=== PATIENT | male | born 1955 | race Caucasian/White ===

== ENCOUNTER → 2021-05-11 13:26 | Outpatient (BNVA) | payer OTHER, SELFPAY | PROVIDERS: Referring Provider Family Medicine; Visit Provider Orthopaedic Surgery | DX: M25.562 Pain in left knee (principal); M25.561 Pain in right knee; M25.862 Other specified joint disorders, left knee; Z96.651 Presence of right artificial knee joint | CPT/HCPCS: 73560; 73565 ==

== ENCOUNTER → 2021-05-18 09:23 | Outpatient (BNVA) | payer OTHER, SELFPAY | PROVIDERS: Visit Provider Orthopaedic Surgery | DX: Z01.812 Encounter for preprocedural laboratory examination (principal); Z20.822 Contact with and (suspected) exposure to COVID-19 | CPT/HCPCS: 87635 ==

== ENCOUNTER 2021-05-24 07:51 | Inpatient (IN) | payer MEDICARE, SELFPAY ==
[2021-05-21 11:59] VITALS: BMI 39.5
--- NOTE | 2021-05-21 12:01 | ECG_ITS ---
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 Measurements Intervals [place] Rate: 59 P: 62 MS: 169 QRS: 10 QRSD: 108 T: 58 QT: 514 QTc: 510 Interpretive Statements SINUS BRADYCARDIA INCOMPLETE RIGHT BUNDLE BRANCH BLOCK [90+ ms QRS DURATION, TERMINAL R IN V1/V2, 40+ ms S IN I/aVL/V4/V5/V6] NONSPECIFIC ST & T-WAVE ABNORMALITY PROLONGED QT INTERVAL TYPE 3 BRUGADA PATTERN (NON-DIAGNOSTIC) [COVED/SADDLEBACK ST ELEVATION > 0.1mV IN 2 OF V1-3] CRITICAL TEST RESULT No previous ECG available for comparison Electronically Signed On 05-21-2021 17:57:10 STRUCTURAL STEEL WORKER APPRENTICE by Frederic Wilder M.D. [id number]
[2021-05-21 12:42] LABS: Basophils # 0.1 10^3/uL (0.0-0.1); Basophils % 0.7 %; Eosinophils # 0.1 10^3/uL (0.0-0.8); Eosinophils % 1.1 %; Hematocrit 50.8 % (42.0-52.0); Hemoglobin 16.9 g/dL (11.7-16.6); Lymphocytes # 1.9 10^3/uL (0.8-4.8); Lymphocytes % 19.2 %; Mean Corpuscular HGB Conc 33.3 g/dL (30.0-36.0); Mean Corpuscular Hemoglobin 29.9 pg (28.0-34.0); Mean Corpuscular Volume 89.8 fl (80-94); Mean Platelet Volume 11.2 fL (7.4-10.4); Monocytes # 0.7 10^3/uL (0.2-0.9); Monocytes % 6.8 %; Neutrophils # 6.94 10^3/uL (1.8-7.7); Neutrophils % 71.9 %; Nucleated Red Blood Cells % 0 %; Platelet Count 219 10^3/cmm (130-400); Red Blood Count 5.66 10^6/uL (4.1-5.3); White Blood Count 9.7 10^3/uL (4.0-10.0)
[2021-05-21 13:00] LABS: Anion Gap 18.2 (5-19); Blood Urea Nitrogen 13 mg/dL (8-23); Calcium 9.3 mg/dL (8.5-10.5); Carbon Dioxide 25 mmol/L (22-29); Chloride 103 mmol/L (98-107); Glomerular Filtration Rate 134.4 mL/min (90-130); Glucose 112 mg/dL (65-115); Osmolality Calculated 295 mOsm/kg (285-295); Potassium 4.2 mmol/L (3.5-5.1); Sodium 142 mmol/L (136-145)
--- NOTE | 2021-05-21 15:40 | ANES.PREANE2 ---
Pre-Anesthetic Assessment Pre-Anesthetic Assessment: Height/Weight: Height 1.85 m Weight 136.078 kg Proposed Procedure: Operation Date: 05/24/21 09:30 Proposed Procedures p Total Knee Arthroplasty Revision 14056(Right) - Mikey Fajardo MD Familial anesthetic complications: None Was Beta Jamal taken within 24 hours: Yes Was Clonidine taken within 24 hours: N/A Social: Social History: Alcohol and Tobacco Exam: Pre-Anes Outpt Exam: alert, oriented x 3, clear to auscultation bilaterally and regular rate & rhythm Airway: Submandibular: WNL Cervical ROM: WNL MP: 1 Dentition: False Pulmonary: Pulmonary: None reported CV/HEM: CV/HEM: HTN Comments: METS < 4 due to pain EKG pending read, no CP, nausea, vomiting, palpitations today. : : None reported Hepatic: Hepatic: None reported GI: GI: None reported Metabolic: Metabolic: Morbid obesity and None reported Musc/skel: Comments: Right knee replacement. Neuropsych: Neuropsych: None reported Anesthetic Plan: Anesthesia: Anesthesia Evaluation, Eval. for regional block, General and Regional (specify below) Other: Patient would like adductor canal block. Patient would like general anesthesia. For the adductor canal block patient would prefer general anesthesia. Risk of > 500 ml blood loss (7ml/kg in children): No Other Pertinent Information: Initial EKG automated report shows possible Brugada syndrome. Final read pending. PFSH Anesthesia PFSH: Social History Smoking and tobacco status: current every day smoker Data Anesthesia CBC & Chem 7: 05/21/21 12:11 05/21/21 12:11 Other Labs: Laboratory Results - last 48 hr 05/21/21 05/21/21 12:11 12:11 WBC 9.7 RBC 5.66 H Hgb 16.9 H Hct 50.8 MCV 89.8 MCH 29.9 MCHC 33.3 RDW 13.0 Plt Count 219 MPV 11.2 H Neut % (Auto) 71.9 Lymph % (Auto) 19.2 [place] % (Auto) 6.8 Eos % (Auto) 1.1 Baso % (Auto) 0.7 Neut # (Auto) 6.94 Lymph # (Auto) 1.9 [place] # (Auto) 0.7 Eos # (Auto) 0.1 Baso # (Auto) 0.1 Nucleated RBC % (auto) 0 Nucleated RBCs # 0.0 Sodium 142 Potassium 4.2 Chloride 103 Carbon Dioxide 25 Anion Gap 18.2 BUN 13 Creatinine 0.6 L GFR Calculation 134.4 H Glucose 112 Calculated Osmolality 295 Calcium 9.3 Cardiac Studies: No Data to Display
[2021-05-24] VITALS (21 sets, daily range): BP systolic 127–180; BP diastolic 68–110; PULSE 54–71; RESP 16–18; TEMP 36.2–37; O2SAT 91–97
--- NOTE | 2021-05-24 08:35 | ECG_ITS ---
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 Measurements Intervals [place] Rate: 51 P: 61 NV: 168 QRS: -7 QRSD: 104 T: 30 QT: 426 QTc: 394 Interpretive Statements SINUS BRADYCARDIA INCOMPLETE RIGHT BUNDLE BRANCH BLOCK [90+ ms QRS DURATION, TERMINAL R IN V1/V2, 40+ ms S IN I/aVL/V4/V5/V6] Compared to ECG 05/21/2021 12:22:47 T-wave abnormality no longer present Prolonged QT interval no longer present ST (T wave) deviation no longer present Electronically Signed On 05-25-2021 5:17:30 ADOBE FLEX DEVELOPER by Martha Little M.D. [id number]
[2021-05-24] MEDS: sodium chloride 0.9% 1,000 ML 30 ML IV (08:39)
[2021-05-24] MEDS: oxyCODONE 20 mg ER (12 HR) Tablet PO (08:58)
[2021-05-24] MEDS: CELEcoxib 200 mg Capsule 400 MG PO (08:58)
[2021-05-24] MEDS: acetaminophen 500 mg Tablet 1000 MG PO ×2 (08:58→16:03)
[2021-05-24] MEDS: gabapentin 300 mg Capsule PO ×2 (08:59→17:49)
--- NOTE | 2021-05-24 09:24 | P.ANESUD_ITS ---
Pre-Anesthetic Update Pre-Anesthetic Assessment: Date of Surgery/Procedure: 05/24/21 Preop Farrah gnosis: Dislocated right total knee Proposed Procedure: Operation Date: 05/24/21 09:30 Proposed Procedures p Total Knee Arthroplasty Revision 36340(Right) - Mikey Fajardo MD Any changes to Pre-Anesthetic Assessment?: No Last Intake: Intake Last Liquid Date 05/23/21 Last Liquid Time 21:30 Last Solid Date 05/23/21 Last Solid Time 17:00 Vitals: Temperature 98.6 F 05/24/21 08:10 Temperature Source Temporal Artery S can 05/24/21 08:10 Pulse Rate 54 L 05/24/21 08:10 Pulse Rhythm 05/24/21 08:11 Pulse Strength 3+ Normal 05/24/21 08:11 Respiratory Rate 18 05/24/21 08:58 Respiratory Effort 05/24/21 08:58 Respiratory Depth Normal 05/24/21 08:58 Respiratory Patter n 05/24/21 08:58 Blood Pressure 152/106 05/24/21 08:10 Blood Pressure Jessie n 121 05/24/21 08:10 Pulse Oximetry 93 05/24/21 08:10 Oxygen Delivery Me thod 05/24/21 08:11 Exam: Pre-Anes Outpt Exam: alert, oriented x 3, clear to auscultation bilaterally and regular rate & rhythm Other Pertinent Information: Other Pertinent Information: Patient declines spinal and nerve block Cardiac Studies: No Data to Display
--- NOTE | 2021-05-24 09:51 | W.PM.OPSFHP ---
Same Day Surgery H&P Indication for Procedure/HPI DATE OF PROCEDURE: May 24, 2021 CHIEF COMPLAINT/INDICATIONFOR SURGICAL PROCEDURE: Unstable right total knee arthroplasty. PREOP DIAGNOSIS: Dislocated right total knee PLANNED PROCEDRUE: Operation Date: 05/24/21 09:30 Proposed Procedures p Total Knee Arthroplasty Revision 04135(Right) - Mikey Fajardo MD 65-year-old with history of a right total knee arthroplasty performed 17 years ago. He was functioning reasonably well although had some complaints of instability. The patient fell to with clicking and popping within the knee now instability and mechanical popping inside the knee. Medications/Allergies* Home Medications Medication Instructions Recorded Confirmed Type lisinopril 20 mg tablet 20 mg PO DAILY 05/11/21 05/24/21 History lovastatin 40 mg tablet 40 mg PO DAILY 05/11/21 05/24/21 History metoprolol succinate 50 mg PO DAILY 05/21/21 05/24/21 History [id number]-epa-fish oil-D3 [Fish 1 cap PO DAILY 05/21/21 05/24/21 History Oil-Vit D3] potassium 99 mg PO DAILY 05/21/21 05/24/21 History Allergies/Adverse Reactions Allergy/AdvReac Type Severity Reaction Status Date / Time No Known Allergies Allergy Verified 05/24/21 08:16 Current Medications: Generic Name Dose Route Start Last Admin Trade Name Konstantinq PRN Reason Stop Dose Admin Sodium Chloride 1,000 mls @ 30 mls/hr 05/24/21 08:00 05/24/21 08:39 Sodium Chloride 0.9% IV 05/25/21 07:59 30 mls/hr .Q24H OSCAR Administration Pertinent History/Comorbid Conditions* Social History Smoking and tobacco status: current every day smoker Pertinent Exam Findings alert, oriented x 3, clear to auscultation bilaterally, regular rate & rhythm and operative site marked Recommendations Surgery/Procedure today Coding Level of Care Code Acute [employer]ed [employer] 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
[2021-05-24] MEDS: tranexamic acid 1,000 mg/10mL SDV 1000 MG IV (10:50)
[2021-05-24] MEDS: tranexamic acid 1,000 mg/10mL SDV 1000 MG IRRIGATION (11:22)
[2021-05-24] MEDS: EPINEPHrine 1 mg/mL INJ XX (11:23)
[2021-05-24] MEDS: ketorolac 30 mg/mL INJ IM (11:24)
--- NOTE | 2021-05-24 11:59 | XR_ITS ---
WS: [id number] XR knee RT 1-2V 60486 REASON FOR EXAM: Revision right total knee FINDINGS: Revision of total right knee arthroplasty. Femoral and tibial components of the prosthesis appear properly positioned with normal knee joint ali gnment. Patellar prosthesis removed. XR/XR knee RT 1-2V 45091 IMPRESSION: Revision of total right knee arthroplasty with proper position and alignment.
--- NOTE | 2021-05-24 12:04 | PM.OP ---
Operative Report Date of procedure: May 24, 2021 Pre-op Diagnosis: Dislocated right total knee Post-op diagnosis: same Post-op Findings: Polyethylene failure right total knee Implants: Depuy Sigma size 4 rotating platform, 12.5mm Pathology: none sent Surgeon: Mikey Fajardo Anesthesia: General Estimated blood loss (mL): 50 Tourniquet time (min): 21 Findings: The patient had severe posterior polyethylene wear it is medial and lateral tibial polyethylene Condition: stable Disposition: PACU Procedure: The patient was taken to the operating room and given 2 g of Ancef. A general anesthesia was provided. He was prepped and draped in the supine position with a tourniquet on the right thigh. The tourniquet was inflated to 350 mmHg. The anterior knee was opened up in line with the previous scar. The previous suture line in the extensor retinaculum is identified and it was divided with a scalpel blade. Scar tissue was removed in the suprapatellar pouch medial lateral gutters to allow the patella to be displaced laterally. Upon entering the knee multiple polyethylene fragments were identified. A sharp osteotome was used to remove the post from the tibial component and the polyethylene was removed in 2 pieces. The extreme posterior wear of the polyethylene was identified. A trial reduction with a similar size 412.5 mm polyethylene provided excellent stability. Deep cultures were taken. The knee was irrigated with saline antibiotic solution. A new polyethylene was placed the tourniquet was deflated. Hemostasis was provided with electrocautery. The extensor retinaculum was repaired with 1-0 Stratafix suture. Subcutaneous tissues were closed with 2-0 Stratafix suture. Skin was closed with a 4 0 Stratafix suture and Prineo glue. A compressive stocking was applied. The patient was extubated and taken to recovery room in stable condition.
[2021-05-24] MEDS: fentaNYL 50 mcg/mL INJ 2mL IVP (12:27)
[2021-05-24] MEDS: hyDRALAzine 20 mg/mL INJ 1 mL 5 MG IVP (12:42)
[2021-05-24] MEDS: oxyCODONE 5 mg IR Tab/Cap PO ×2 (13:52→17:48)
[2021-05-24] MEDS: sodium chloride 0.9% 1,000 ML 100 ML IV (13:58)
--- NOTE | 2021-05-24 14:04 | ANE.PACU2 ---
Inpatient post-anesthesia follow up: Airway intact: Yes Vital signs: Temperature 97.2 F Pulse Rate 71 Respiratory Rate 18 Blood Pressure 142/78 Pulse Oximetry 96 Oxygen Delivery Me thod Room Air Oxygen Flow Rate 3 Fraction of Inspir ed Oxygen Hydration adequate: Yes Nausea and vomiting: No Pain level: 2 Mental status: Baseline
[2021-05-24] MEDS: CELEcoxib 200 mg Capsule PO (16:03)
--- NOTE | 2021-05-24 16:26 | P.DS_ITS ---
Discharge Providers Date of Admission: 05/24/21 07:51 Date of Discharge: May 24, 2021 Attending Provider at Admission: Mikey Fajardo MD Attending Provider at Discharge: Mikey Fajardo MD Primary Care Provider: Esdras Marie MD Diagnoses at Discharge Discharge Diagnosis (1) Postoperative state: Status: Acute (2) Failed total right knee replacement: Status: Resolved Reason for Visit Reason for Visit: failed right total knee arthroplasty T84.093A Hospital Course Hospital Course The patient tolerated surgery well. They remained hemodynamically stable. They was begun on aspirin and foot pumps for DVT prophylaxis. The patient was mobilized with therapy beginning the day of surgery and on that day independent day he was with the walker. As the pain was adequately controlled and they were fully mobile they were discharged home. Physical Exam Narrative: EXAM NARRATIVE: On the day of discharge his knee incision was clean. They had no drainage. There is minimal swelling in the thigh and knee and the calf. No distal neurovascular deficits were noted Urinary Catheter Management^: Steven: Cath Placed During This Visit: yes, but has since been removed by the nurse Urinary Catheter Date of Insertion: 05/24/21 Urinary Catheter Time of Insertion: 10:45 Date Urinary Catheter Removed: 05/24/21 Time Urinary Catheter Discontinued: 11:55 Discharge Data Data Completed and Pending: Completed Studies During Hospitalization Category Date Time Status XR knee RT 1-2V 7 3560 Routine Exams 05/24/21 11:59 Completed Pending at discharge Category Date Time Status Anaerobic Culture Routine Lab 05/24/21 10:55 Received Hemoglobin AM LAB S Lab 05/25/21 04:00 Ordered Wound Culture and Gram Stain Routin e Lab 05/24/21 10:55 Received Vitals: Last Vital Signs Temp 97.7 F 05/24/21 13:32 Pulse 68 05/24/21 15:54 Resp 17 05/24/21 15:54 BP 147/89 05/24/21 13:32 Pulse Ox 95 05/24/21 15:54 Discharge Plan Discharge Patient Disposition: Home Condition: Stable Prescriptions: New oxycodone 5 mg Tablet 5 mg PO Q4H PRN (Reason: Moderate Pain) 7 Days Qty: 40 RF: 0 acetaminophen 500 mg Tablet 1,000 mg PO Q8H 14 Days Qty: 84 RF: 0 aspirin 325 mg Tablet,Delayed Release (Dr/Ec) 325 mg PO DAILY 30 Days RF: 0 gabapentin 300 mg Capsule 300 mg PO BID 7 Days Qty: 14 RF: 0 celecoxib 200 mg Capsule 200 mg PO Q12H 14 Days Qty: 28 RF: 0 Continued lisinopril 20 mg tablet 20 mg PO DAILY RF: 0 lovastatin 40 mg tablet 40 mg PO DAILY RF: 0 metoprolol succinate 50 mg tablet extended release 24 hr 50 mg PO DAILY RF: 0 potassium 99 mg Tablet 99 mg PO DAILY RF: 0 swfrr-[id number]-[id number]-epa-fish oil-D3 [Fish Oil-Vit D3] 360 mg-1,200 mg -1,000 unit Capsule 1 cap PO DAILY RF: 0 Discharge Orders: Discharge Order (Routine); Ordered 05/24/21 Ordered By: Mikey Fajardo Other Ambulatory Orders: DME: Karan (Order) Location: None Selected Ordered By: Mikey Fajardo Discharge Diet: Advance as tolerated Discharge Activity: Limit activity as instructed Patient Instructions: Opioid Safety Activity Restrictions/Additional Instructions: Okay to shower Keep Tubigauze sleeve in place for swelling. Okay to remove for hygiene. Apply FirstIce up to 20 min/hr for pain and swelling Take Celebrex twice a day for the next 15 days for pain , discontinue other anti-inflammatories Take Neurontin twice a day for 7 days. Take Tylenol 500mg (1-2 tabs) as needed 3 times a day for mild pain take oxycodone for breakthrough pain. Exercises per physical therapy. May weight-bear as tolerated on total knee arthroplasty Discharge Attestations Time Spent in Discharge Care*: other Quality Metrics Clinical Quality Measures During this hospital stay, did patient experience: None Coding Level of Care Code Acute [facility] note Diagnoses Postoperative state Z98.890 Failed total right knee replacement T84.012A
--- NOTE | 2021-05-24 18:40 | PC.NURSE ---
IV removed intact and patient tolerated well. Patient is A&OX3. Respirations even and non-labored on room air. Reviewed patient's discharge with patient and at this time. Patient and verbalized understanding of discharge instructions and follow up appointments. Patient wheel chaired to private car.
== END 2021-05-24 19:00 | disposition home health service (06) | DRG 489 ==
PROVIDERS: Admitting Provider Orthopaedic Surgery; PCP Family Medicine; Visit Provider Orthopaedic Surgery
PROC: 0SPC09Z Removal of Liner from Right Knee Joint, Open Approach (ICD-10-PCS; principal; 2021-05-24 09:10)
DX: T84.022A Instability of internal right knee prosthesis, initial encounter (principal); Y79.1 Therapeutic (nonsurgical) and rehabilitative orthopedic devices associated with adverse incidents; W19.XXXA Unspecified fall, initial encounter
CPT/HCPCS: 51702; 73560; 80048; 85025; 87070; 87075; 87205; 93005; 97161; 97530; C1776; J0171; J0360; J0690; J1100; J1580; J1885; J2250; J2405; J2704; J2710; J2795; J3010; J3490; J7030